=== PATIENT | male | born 1945 | race Caucasian/White ===

== ENCOUNTER 2020-03-02 14:24 | Inpatient (IN) | payer OTHER, SELFPAY ==
[2020-03-02] VITALS (46 sets, daily range): BP systolic 116–187; BP diastolic 63–144; PULSE 46–133; RESP 9–28; TEMP 35.9–36.6; O2SAT 92–98
--- NOTE | 2020-03-02 14:15 | RT.EKG_ITS ---
APPROVED REPORT Exam: Resting ECG Patient Location: E HR:123 bpm ECG Measurements Heart Rate 123 AXIS IL [id number] P [id number] QRSd 88 QRS -36 QT 317 T 81 QTc 454 Conclusion Atrial fibrillation...? atrial activity Left axis deviation...QRS axis (-30,-90) Borderline ST depression, anterolateral leads...ST <-0.07mV, I aVL V2-V6
--- NOTE | 2020-03-02 14:53 | ED.GENADUL_ITS ---
Discharge Plan Disposition Patient Disposition: [facility] INPATIENT Condition: Serious Discharge Details Clinical Impression: Atrial fibrillation with rapid ventricular response Admit Date/Time: 03/02/20 15:44 Admit Provider: Sean Huddleston Attending Provider: Sean Huddleston Primary Care Provider: Nimco Christina ED Provider: Jennifer Elena Discharge Data Discharge Date/Time-TO BE ENTERED AT DEPARTURE: 03/02/20 16:24 Medical Decision Making 75-year-old male presents to the ER with chief complaint of palpitations which began at 1030 this morning while playing golf. He denies any chest pain, dizziness weakness or shortness of breath he does states that he does not feel good. He does have a history of atrial fibrillation and had a ablation in [facility] in August 2017. Upon initial exam he is tachycardic at a irregular rate of 122-135 . He is alert and oriented x3. He is taking apixaban. Has a history of atrial fibrillation, hypertension, past surgical history includes knee replacements Discussed options with patient by Dr. Linn regarding plan of care including option 1 cardiovert with oral medications and admission or transfer to the [facility]. Rate control medications and admission or transfer to the [facility], or that he can choose to be seen at the [facility] with his normal doctors. After discussing with his family patient opted for rate control and admission to this facility. 15 mg diltiazem ordered 10 mg an hour infusion ordered at this time. 1538: Dr. Huddleston at bedside for patient evaluation. Patient received 15 mg of diltiazem IV push which brought his heart rate down to 80 he is still in atrial fibrillation but his rate is very much controlled at this point. HPI General Mode of arrival: ambulatory . Date/Time Provider Initiated Documentation: 03/02/20 14:28 . Limitations to Documentation: no limitations . Information obtained by: patient . HPI Narrative: 75-year-old male presents to the ER with chief complaint of palpitations which began at 1030 this morning while playing golf. He denies any chest pain, dizziness weakness or shortness of breath he does states that he does not feel good. He does have a history of atrial fibrillation and had a ablation in [facility] in August 2017. Upon initial exam he is tachycardic at a irregular rate of 122-135 . He is alert and oriented x3. He is taking apixaban. Has a history of atrial fibrillation, hypertension, past surgical history includes knee replacements Related Data Home Medications Medication Instructions Recorded Confirmed simvastatin 20 mg PO HS 12/29/13 03/02/20 apixaban [Eliquis] 5 mg PO DAILY 03/02/20 03/02/20 Allergies Allergy/AdvReac Type Severity Reaction Status Date / Time No Known Allergies Allergy Unverified 03/02/20 14:54 General Stated Complaint: Palpitatns JAILENE: 3 Review of Systems Narrative: Constitutional: Negative for weight loss, alert and oriented, well groomed, normal body habitus, appears comfortable. HEENT: Denies trauma, headaches, blurry vision, nasal discharge, sore throat, trouble swallowing. Chest: Denies chest pain. The palpitations and hypertension. Respiratory: Denies Shortness of breath, cough, hemoptysis. GI: Denies abdominal pain, nausea, vomiting, diarrhea, constipation. : Denies dysuria, hematuria, flank pain, rectal bleeding. Neuro: Denies dizziness, blurry vision, weakness, syncope, headache or facial numbness. Hematologic: Denies easy bruising, intolerance to heat or cold, hair loss. [facility] Social History Smoking/Tobacco Use Status: Former Tobacco Use Alcohol Intake: current Alcohol Intake frequency: holidays/special occasions only Alcohol type: beer Drug use: Never Substance use type: does not use Do you feel safe at home: Yes Do you feel safe in your relationship?: Yes Exam Narrative Exam Narrative: Constitutional: Alert and oriented x3. Appears stated age. Normal body habitus. Head: Normocephalic, no trauma. Eyes: Pupils PERRLA, Red reflex noted, EOM's intact. Eyelids symmetrical without lesions, discharge, or swelling. ENT: Bilateral TM's WNL, External ear normal to inspection, no mastoid TTP, swelling, or erythema, Nasal turbinates WNL, no nasal discharge. Normal dentition, Posterior pharynx WNL, no exudate. Chest: Irregular rate at a rate of 135, normal S1, S2, distal pulses intact. Resp: Lungs clear to auscultation bilaterally, no wheezes, rales, or rhonchi. Musculoskeletal: Normal gait, 5/5 strength to all four extremities. Skin: No suspicious rashes or lesions. Capillary refill less than 2 sec. Neurologic: Cranial nerves II-XII intact. Alert and oriented x 3. DTR's intact. Hematologic/Lymphatic: No ecchymosis, no lymphadenopathy. Course Vital Signs Vital signs: Vital Signs Temperature 36.6 C 03/02/20 14:30 Pulse 122 H 03/02/20 14:30 Respiratory Rate 16 03/02/20 14:30 Blood Pressure 135/98 H 03/02/20 14:30 Pulse Oximetry 97 03/02/20 14:30 Temperature 36.6 C 03/02/20 14:30 Temperature Source Tympanic 03/02/20 14:30 Pulse 122 H 03/02/20 14:30 Respiratory Rate 16 03/02/20 14:30 Respiratory Effort Non-Labored 03/02/20 14:33 Blood Pressure 135/98 H 03/02/20 14:30 Blood Pressure Position Sitting 03/02/20 14:30 Pulse Oximetry 97 03/02/20 14:30 Oxygen Delivery Method Room Air 03/02/20 14:30 Oxygen Flow Rate 0 03/02/20 14:30 Pain Level 0 03/02/20 14:30
[2020-03-02 15:01] LABS: Abs Immature Grans 0.02 10^3/uL (0.0-0.06); Absolute Basophil Count 0.04 10^3/uL (0.0-0.2); Absolute Lymphocyte Count 1.66 10^3/uL (1.2-3.4); Absolute Monocyte Count 0.59 10^3/uL (0.1-0.8); Absolute Neutrophil Count 5.52 10^3/uL (1.2-6.7); Basophils % 0.5; Eosinophils % 1.3; HCT 49.1 % (40.0-50.0); HGB 16.6 g/dL (13.5-17.5); Immature Grans % 0.3; Lymphocytes % 20.9; MCH 28.8 pg (27.0-33.0); MCHC 33.8 % (32.0-36.0); MCV 85.1 fL (80-95); MPV 10.1 fL (8.0-11.0); Monocytes % 7.4; Neutrophils % 69.6; Nucleated RBC 0 %; Platelet Count 205 10^3/uL (130-400); RBC 5.77 10^6/uL (4.36-5.78); RDW 13.2 % (11.8-14.1); RDW-SD 40.5 fL; WBC 7.93 10^3/uL (4.4-10.8)
[2020-03-02 15:21] LABS: ALT 23 U/L (16-63); AST 15 U/L (15-37); Albumin 3.5 g/dL (3.4-5.0); Alkaline Phosphatase 62 U/L (46-116); Anion Gap 9.3 mmol/L (3-11); BUN 13 mg/dL (7-18); Bilirubin, Total 0.6 mg/dL (0.2-1.0); CO2 25.7 mmol/L (21.0-32.0); CREATININE 1.26 mg/dL (0.70-1.30); Calcium 8.6 mg/dL (8.5-10.1); Chloride 106 mmol/L (98-107); Glucose 132 mg/dL (74-106); Magnesium 2.1 mg/dL (1.8-2.4); Potassium 3.5 mmol/L (3.5-5.1); Sodium 141 mmol/L (136-145); Total Protein 6.8 g/dL (6.4-8.2)
[2020-03-02 15:23] LABS: Troponin I < 0.05 ng/mL (<0.06)
[2020-03-02] MEDS: dilTIAZem 25 MG/5 ML VIAL 15 MG IVP (15:40)
--- NOTE | 2020-03-02 15:49 | HPE_ITS ---
Date of service: 03/02/20 Time of Service: 15:49 Assessment and Plan Assessment and plan (1) Atrial fibrillation with rapid ventricular response: Status: Acute Assessment and plan: Initial good response to IV Diltiazem push. Planning Diltiazem drip. Transition to po BB. Cont Eliquis. Gentle IV hydration. PO K to boost K level; currently low normal. (2) HLD (hyperlipidemia): Status: Acute Assessment and plan: Holding his home simvistatin d/t potential interaction with diltiazem. Qualifiers: Hyperlipidemia type: unspecified Qualified Code(s): E78.5 - Hyperlipide jose luis, unspecified History of Present Illness History of Present Illness Chief Complaint: Palpitations Narrative: This is a 75 yo male with a h/o afib / s/p ablation and on Eliquis, HLD. He presented to the ED with c/o palpitations and not feeling well. This occured while playing golf at appx 10:30AM. No CP, SOA, dizziness. His initial HR in the ED ranged from 122-135. He was given 15mg IV Diltiazem and his HR decreased into the 70's. WBC count normal. Hgb 16.6. Na 141, K 3.5, Cr 1.26, Mg 2.1. Troponin neg x 1. He is being admitted on a diltiazem drip. Review of Systems All systems reviewed & are unremarkable except as noted in HPI and below PFSH Social History Smoking/Tobacco Use Status: Former Tobacco Use Alcohol Intake: current Alcohol Intake frequency: holidays/special occasions only Alcohol type: beer Drug use: Never Substance use type: does not use Do you feel safe at home: Yes Do you feel safe in your relationship?: Yes Meds Home Medications and Allergies Home Medications Medication Instructions Recorded Confirmed Type simvastatin 20 mg PO HS 12/29/13 03/02/20 History apixaban [Eliquis] 5 mg PO DAILY 03/02/20 03/02/20 History Allergies Allergy/AdvReac Type Severity Reaction Status Date / Time No Known Allergies Allergy Unverified 03/02/20 14:54 Exam Const General: cooperative and no acute distress Nutritional Appearance: overweight Orientation: alert and oriented x3 Neck Neck: full ROM and no JVD Resp Effort & Inspection: normal respiratory effort Auscultation: clear to auscultation bilaterally Cardio Rhythm: other (Irreg Irreg) GI Palpation: soft and nontender Auscultation: normal bowel sounds Extrem General: no clubbing, cyanosis or edema Results Labs Result diagrams: 03/02/20 14:55 03/02/20 14:55 Labs: Laboratory Results - last 24 hr 03/02/20 03/02/20 14:55 14:55 WBC 7.93 RBC 5.77 Hgb 16.6 Hct 49.1 MCV 85.1 MCH 28.8 MCHC 33.8 RDW 13.2 Plt Count 205 MPV 10.1 Immature Gran % 0.3 Neutrophils % 69.6 Lymphocytes % 20.9 Monocytes % 7.4 Eosinophils % 1.3 Basophils % 0.5 Nucleated RBC % 0 Absolute Neutrophils 5.52 Absolute Lymphocytes 1.66 Absolute Monocytes 0.59 Absolute Eosinophils 0.10 Absolute Basophils 0.04 Sodium 141 Potassium 3.5 Chloride 106 Carbon Dioxide 25.7 Anion Gap 9.3 BUN 13 Creatinine 1.26 Estimated GFR/1.73 m2 56.10 Glucose 132 H Calcium 8.6 Magnesium 2.1 Total Bilirubin 0.6 AST 15 ALT 23 Alkaline Phosphatase 62 Troponin I < 0.05 Total Protein 6.8 Albumin 3.5 Last Vital Signs Temp 36.6 C 03/02/20 14:30 Pulse 117 H 03/02/20 15:40 Resp 16 03/02/20 14:30 BP 145/86 H 03/02/20 15:40 Pulse Ox 97 03/02/20 14:30 COVID-19 Screening Have you,or household,traveled outside [place] in last 14 days?: No Had IN PERSON contact w/suspected or confirmed C-19 person: No
--- NOTE | 2020-03-02 15:57 | DI.RAD_ITS ---
EXAM: XR CHEST 2V PA LATERAL CLINICAL HISTORY: Palpitations TECHNIQUE: 2D digital imaging was performed. COMPARISON: No exams were available for comparison FINDINGS: MEDIASTINUM: Normal. HEART: Normal. PULMONARY VASCULATURE: Normal. LUNGS: Clear. PLEURAL SPACE: No pleural effusion or pneumothorax. BONE:Within normal limits for the patient's age. OTHER FINDINGS:Normal. IMPRESSION: No acute pulmonary findings. DATA REPOSITORY: RADIATION DOSE DELIVERED:
--- NOTE | 2020-03-02 16:11 | DI.VRAD_ITS ---
PROCEDURE INFORMATION: Exam: XR Chest, 2 Views Exam date and time: 03/02/2020 3:57 PM Age: 75 years old Clinical indication: Other: Palpitations TECHNIQUE: Imaging protocol: XR of the chest Views: 2 views. COMPARISON: No relevant prior studies available. FINDINGS: Lungs: Unremarkable. No consolidation. Pleural space: Unremarkable. No pleural effusion. No pneumothorax. Heart/Mediastinum: Unremarkable. No cardiomegaly. Bones/joints: Unremarkable. IMPRESSION: No acute findings. Dictated and Authenticated by: Reji Islas MD. Ordering:PB Rodriguez MD
[2020-03-02] MEDS: dilTIAZem 125 MG in Normal Saline 100 ML IV (16:17)
[2020-03-02 16:25] LABS: TSH 2.28 uIU/mL (0.36-3.74)
[2020-03-02 19:38] LABS: Troponin I < 0.05 ng/mL (<0.06)
[2020-03-02] MEDS: Apixaban 5 MG TAB PO (20:27)
[2020-03-02] MEDS: Potassium Chloride 20 MEQ TABCR PO (20:27)
[2020-03-03] VITALS (38 sets, daily range): BP systolic 108–144; BP diastolic 59–86; PULSE 49–100; RESP 7–26; TEMP 36–36.3; O2SAT 95–98
[2020-03-03] MEDS: Normal Saline 1,000 ML 75 ML IV (02:45)
[2020-03-03 07:13] LABS: Anion Gap 10.1 mmol/L (3-11); BUN 12 mg/dL (7-18); CO2 22.9 mmol/L (21.0-32.0); CREATININE 1.05 mg/dL (0.70-1.30); Calcium 8.3 mg/dL (8.5-10.1); Chloride 107 mmol/L (98-107); Glucose 111 mg/dL (74-106); Sodium 140 mmol/L (136-145)
[2020-03-03] MEDS: Potassium Chloride 20 MEQ TABCR PO (08:23)
[2020-03-03] MEDS: Apixaban 5 MG TAB PO (08:23)
[2020-03-03 08:29] LABS: COVID-19 RT-PCR UVMMC Result Negative (Negative)
[2020-03-03] MEDS: Metoprolol 25 MG TAB PO (10:15)
--- NOTE | 2020-03-03 13:48 | DSE_ITS ---
Date of service: 03/03/20 Time of Service: 13:48 DS: Diagnosis Discharge Diagnosis (1) Atrial fibrillation with rapid ventricular response: Status: Acute (2) HLD (hyperlipidemia): Status: Acute Discharge Plan Disposition Patient Disposition: HOME Condition: Good Discharge Details Reason For Visit: ATRIAL FIBRILLATION WITH RAPID VENTRICULAR RESPONS Admit Date/Time: 03/02/20 15:44 Admit Provider: Sean Huddleston Attending Provider: Sean Huddleston Primary Care Provider: Nimco Christina Hospital Course Hospital Course: This is a 75 yo male with a h/o afib / s/p ablation and on Eliquis, HLD. He presented to the ED with c/o palpitations and not feeling well. This occured while playing golf at appx 10:30AM. No CP, SOA, dizziness. His initial HR in the ED ranged from 122-135. He was given 15mg IV Diltiazem and his HR decreased into the 70's. WBC count normal. Hgb 16.6. Na 141, K 3.5, Cr 1.26, Mg 2.1. Troponin neg x 1. He was admitted on a diltiazem drip. Subsequently, he was placed on oral metoprolol and his ventricular heart rate remained controlled. He was also hydrated with IV NS. His creatinine was initially 1.26 and the decreased to 1.05. His initial potassium was 3.5. He received an oral dose of potassium and it improved to 4.0. Mg normal at 2.1. He will d/c on metoprolol tartrate 25mg BID. He has a cardiology appointment next week at the [place] already scheduled. Home Meds and New Rx's Prescriptions: New Eliquis 5 mg Tablet 5 mg PO BID Qty: 0 RF: 0 metoprolol tartrate 25 mg tablet 25 mg PO BID Qty: 60 RF: 0 Continued simvastatin 20 MG tablet 20 mg PO HS RF: 0 Discontinued Eliquis 5 mg Tablet 5 mg PO DAILY RF: 0 Discharge Instructions Instructions: A-fib (Atrial Fibrillation) (GEN) Activity:: Activity as Tolerated Equipment/Supplies:: No Equipment Needed Diet:: Low Sodium Discharge Orders Discharge Orders: Discharge Order (Routine); Ordered 03/03/20 Ordered By: Sean Huddleston DS: Summary Status at Discharge Functional status at discharge: independent ambulation Overall status at discharge: patient is back to baseline Mental Status: mental status grossly normal Speech and Movement: speech and movement normal Mood: congruent mood Affect: normal affect Exam Const General: cooperative and no acute distress Nutritional Appearance: overweight Orientation: alert and oriented x3 Neck Neck: full ROM and no JVD Resp Effort & Inspection: normal respiratory effort Auscultation: clear to auscultation bilaterally Cardio Jugular venous pressure: no JVD Rhythm: other (Irreg Irreg) GI Palpation: soft and nontender Auscultation: normal bowel sounds Neuro General: moves all extremities and no focal motor deficits Cognition: normal cognition Speech: speech normal Extrem General: no clubbing, cyanosis or edema Psych Mental Status: mental status grossly normal Speech and Movement: speech and movement normal Mood: congruent mood Affect: normal affect DS: Data Vitals/I&O Vitals and I&O: Vital Signs Temperature 36.0 C L 03/03/20 12:11 Temperature Source Temporal Artery Scan 03/03/20 12:11 Pulse 84 03/03/20 11:30 Pulse 72 03/03/20 11:30 Respiratory Rate 16 03/03/20 11:30 Respiratory Effort Non-Labored 03/03/20 12:00 Respiratory Depth Normal 03/03/20 12:00 Respiratory Pattern Normal 03/03/20 12:00 Blood Pressure 120/86 03/03/20 11:30 Blood Pressure Mean 94 03/03/20 11:30 Blood Pressure Position Supine 03/02/20 20:36 Pulse Oximetry 97 03/03/20 11:30 Oxygen Delivery Method Room Air 03/03/20 08:00 Oxygen Flow Rate 0 03/03/20 08:00 Pain Level 0 03/03/20 12:00 Intake & Output 03/02/20 03/03/20 03/03/20 23:59 11:59 23:59 Intake Total 518.875 / 518.875 62.333 / 299.333 237 / 299.333 Output Total 1225 / 1225 1535 / 1785 250 / 1785 Balance -706.125 / -706.125 -1472.667 / -1485.667 -13 / -1485.667 Weight 91.6 kg Intake: IV 18.875 / 18.875 62.333 / 62.333 Oral 500 / 500 237 / 237 Output: Urine 1225 / 1225 1535 / 1785 250 / 1785 Other: Urine Color Yellow Pale Pale Yellow Yellow Urine Appearance Clear Clear Clear Urine Odor Normal None None Comment voiding clear urine in urinal Pt voiding standing at bedside in urinal Pt voiding standing at bedside in urinal Voiding Methods Urinal Urinal Data Completed and Pending Labs on day of discharge: Labs from last 24 hours 03/03/20 03/02/20 03/02/20 06:15 19:10 16:00 WBC RBC Hgb Hct MCV MCH MCHC RDW Plt Count MPV Immature Gran % Neutrophils % Lymphocytes % Monocytes % Eosinophils % Basophils % Nucleated RBC % Absolute Neutrophils Absolute Lymphocytes Absolute Monocytes Absolute Eosinophils Absolute Basophils Sodium 140 Potassium 4.0 Chloride 107 Carbon Dioxide 22.9 Anion Gap 10.1 BUN 12 Creatinine 1.05 Estimated GFR/1.73 m2 >= 60.00 Glucose 111 H Calcium 8.3 L Magnesium Total Bilirubin AST ALT Alkaline Phosphatase Troponin I < 0.05 Total Protein Albumin TSH COVID-19 PCR Negative Nasopharyn COVID-19 PCR Not Applicable Ref Test [facility]02/20 03/02/20 03/02/20 14:55 14:55 14:55 WBC 7.93 RBC 5.77 Hgb 16.6 Hct 49.1 MCV 85.1 MCH 28.8 MCHC 33.8 RDW 13.2 Plt Count 205 MPV 10.1 Immature Gran % 0.3 Neutrophils % 69.6 Lymphocytes % 20.9 Monocytes % 7.4 Eosinophils % 1.3 Basophils % 0.5 Nucleated RBC % 0 Absolute Neutrophils 5.52 Absolute Lymphocytes 1.66 Absolute Monocytes 0.59 Absolute Eosinophils 0.10 Absolute Basophils 0.04 Sodium 141 Potassium 3.5 Chloride 106 Carbon Dioxide 25.7 Anion Gap 9.3 BUN 13 Creatinine 1.26 Estimated GFR/1.73 m2 56.10 Glucose 132 H Calcium 8.6 Magnesium 2.1 Total Bilirubin 0.6 AST 15 ALT 23 Alkaline Phosphatase 62 Troponin I < 0.05 Total Protein 6.8 Albumin 3.5 TSH 2.28 COVID-19 PCR Nasopharyn COVID-19 PCR Ref Test Perform Site [facility] Social History Smoking/Tobacco Use Status: Former Tobacco Use Alcohol Intake: current Alcohol Intake frequency: holidays/special occasions only Alcohol type: beer Drug use: Never Substance use type: does not use Do you feel safe at home: Yes Do you feel safe in your relationship?: Yes
== END 2020-03-03 14:30 | disposition home or self-care (01) | DRG 310 ==
LOC: ER 16:10 → ICU 16:26
PROVIDERS: Admitting Provider Family Medicine; Emergency Provider Registered Nurse Emergency; PCP Internal Medicine; Visit Provider Family Medicine
DX: I48.91 Unspecified atrial fibrillation (principal); E78.5 Hyperlipidemia, unspecified; Z79.01 Long term (current) use of anticoagulants; I10 Essential (primary) hypertension; Z96.653 Presence of artificial knee joint, bilateral
CPT/HCPCS: 36415; 80048; 80053; 90686; 93005; 96374; 96375; 99222; 99239; 99285; U0003; 71046; 83735; 84443; 84484; 85025; 93010; 99219

== ENCOUNTER 2021-12-28 09:10 | Outpatient (CLI) | payer OTHER, SELFPAY ==
--- NOTE | 2021-12-28 09:00 | DI.RAD_ITS ---
Exam(s) XR KNEE LT 3V AP,LAT,AMY EXAM: XR KNEE LT 3V AP,LAT,AMY CLINICAL HISTORY: OA LEFT KNEE. TECHNIQUE: 2D digital imaging was performed. Three views. COMPARISON: No exams were available for comparison FINDINGS: BONES: No acute fracture is present. No bony destructive lesion is seen. JOINTS: Severe narrowing medial femoral tibial joint space. Mild periarticular spurring and mild sherman us angulation. Spurring at is noted at the articular aspect of the patella. There is a small enthes ophyte at the quadriceps insertion. No joint effusion is seen. SOFT TISSUE: Normal. IMPRESSION: Severe degenerative changes of the medial femoral tibial joint. DATA REPOSITORY: RADIATION DOSE DELIVERED:
--- NOTE | 2021-12-28 09:00 | DI.RAD_ITS ---
Exam(s) XR STANDING ALIGNMENT EXAM: XR STANDING ALIGNMENT CLINICAL HISTORY: PRE OP L TKA. TECHNIQUE: 2D digital imaging was performed. Standing AP views were performed from the pelvis throu gh the ankles. COMPARISON: No exams were available for comparison FINDINGS: BONES: No acute fracture is present. No bony destructive lesion is seen. The right femoral head proje cts roughly 1 cm superior to the left. JOINTS: Knees: Left knee prosthesis. Severe narrowing of the medial femoral tibial joint space of th e left knee. Hips: Bilateral acetabular spurring. The ankle joint unremarkable. SOFT TISSUE: Normal. IMPRESSION: Right knee prosthesis. Degenerative changes medial femoral tibial joint left knee 1 cm leg length di screpancy. DATA REPOSITORY: RADIATION DOSE DELIVERED:
== END 2021-12-28 09:11 | disposition home or self-care (01) ==
LOC: DIORS 09:10
PROVIDERS: PCP Internal Medicine; Referring Provider Internal Medicine; Visit Provider Student in an Organized Health Care Education/Training Program
DX: M17.12 Unilateral primary osteoarthritis, left knee (principal); Z01.818 Encounter for other preprocedural examination
CPT/HCPCS: 73562; 77073

== ENCOUNTER 2022-01-21 02:35 | Outpatient (CLI) | payer OTHER, SELFPAY ==
[2022-01-21 11:34] LABS: HCT 47.4 % (40.0-50.0); HGB 16.1 g/dL (13.5-17.5); MCH 29.2 pg (27.0-33.0); MCV 86 fL (80-95); MPV 10.2 fL (8.0-11.0); Platelet Count 202 10^3/uL (130-400); RBC 5.52 10^6/uL (4.36-5.78); RDW 13.4 % (11.8-14.1); RDW-SD 42.3 fL; WBC 7.07 10^3/uL (4.4-10.8)
[2022-01-21 11:49] LABS: Anion Gap 10.5 mmol/L (3-11); BUN 17 mg/dL (7-18); CO2 28.5 mmol/L (21.0-32.0); CREATININE 1.1 mg/dL (0.70-1.30); Calcium 8.8 mg/dL (8.5-10.1); Chloride 101 mmol/L (98-107); Glucose 105 mg/dL (74-106); Potassium 3.6 mmol/L (3.5-5.1); Sodium 140 mmol/L (136-145)
[2022-01-21 12:17] LABS: Source Nasal/Nares
[2022-01-21 18:52] LABS: COVID-19 PCR Negative (Negative)
== END 2022-01-21 02:36 | disposition home or self-care (01) ==
LOC: LBO 02:36
PROVIDERS: PCP Internal Medicine; Visit Provider Student in an Organized Health Care Education/Training Program
DX: M25.562 Pain in left knee (principal); M17.12 Unilateral primary osteoarthritis, left knee; Z20.822 Contact with and (suspected) exposure to COVID-19; Z01.818 Encounter for other preprocedural examination; Z01.812 Encounter for preprocedural laboratory examination
CPT/HCPCS: 36415; 80048; 85027; 87635

== ENCOUNTER 2022-01-22 06:00 | Day surgery (SDC) | payer OTHER, SELFPAY ==
[2022-01-22] VITALS (16 sets, daily range): BP systolic 93–173; BP diastolic 44–78; PULSE 45–62; RESP 10–16; TEMP 35.5–36.5; O2SAT 93–98; BMI 31.4
--- NOTE | 2022-01-22 06:14 | W.PM.DSUDISC ---
Discharge Plan Disposition Patient Disposition: HOME Condition: Good Discharge Details Reason For Visit: Left TKA Attending Provider: Hussein Rios Primary Care Provider: Nimco Christina Home Meds and New Rx's Prescriptions: New celecoxib [Celebrex] 200 mg capsule 200 mg PO BID Qty: 60 0RF pantoprazole [Protonix] 40 mg tablet,delayed release (DR/EC) 40 mg PO DAILY Qty: 30 0RF acetaminophen 500 mg capsule 1,000 mg PO Q8H PRN PRNQty: 90 0RF oxycodone 5 mg tablet 5 mg PO Q4H PRNQty: 18 0RF Continued amlodipine 10 mg tablet 10 mg PO DAILY atorvastatin 20 mg tablet 20 mg PO DAILY gabapentin 300 mg capsule 300 mg PO TID hydrochlorothiazide 25 mg tablet 25 mg PO DAILY Eliquis 5 mg Tablet 5 mg PO BID Qty: 0 0RF Discharge Instructions Additional Instructions: Total Knee Discharge Instructions Activity: The most important activity is to walk. You should try to take short walks a few times a day. It is important that when resting you work on keeping the knee straight. Avoid putting a pillow behind the knee as this will encourage flexion. Work on range of motion exercises as provided by Physical Therapy. - Start outpatient physical therapy within 2 weeks. - You should wear the KEELY hose on both legs for 2 weeks. You may remove these at night. You may also use any compression sock in place of the KEELY hose. - Utilize [employer] to review exercises, see videos on exercises and obtain basic information pertaining to your surgery and your recovery. Dressing: Remove the Bereket wrap by 2 days after your surgery and put on the KEELY stocking given to you from the hospital. Keep the surgical dressing (underneath the BEREKET wrap) in place for at least one week. After the first week it may be removed and replaced with light gauze and tape or nothing. The wound and dressing may get wet after 3 days but avoid soaking the dressing or otherwise it will need to be changed. Many people prefer covering the dressing with cling wrap (saran wrap) to minimize it from getting soaked. If it gets wet, just pat dry. If it starts to peel off then it will need to be changed. Medications: - You should take Tylenol and anti-inflammatory Celebrex as your primary pain control medications. If the Celebrex is too expensive or not covered, please call the office for another alternative (Advil/Ibuprofen or Naproxen/Aleve) - You have been prescribed a stronger pain medication Oxycodone for breakthrough pain, take as needed as prescribed. - You have also been prescribed a stomach acid reduction agent Pantoprozole to help reduce stomach acid and reflux. - Continue with your previously prescribed Gabapentin to take at night for restlessness and nerve pain. - You will be resuming your previously prescribed blood thinner, Eliquis, for DVT prevention unless instructed otherwise. - If you have constipation you should take Colace or Miralax (both [id number]). It takes most people 3-4 days to have a bowel movement. Follow-up: 2 weeks If you have any acute concerns or questions, please do not hesitate to contact the office at [phone]. You may contact Dr. Rios with any questions after hours through the hospital at [phone] or on his cell phone at [phone]. Referrals: Hussein Rios MD [ [facility] STAFF PHYSICIAN] - Equipment/Supplies: Walker Activity:: Activity as Tolerated Remove Dressings/Wound Care:: Do Not Remove Shower/Bathe:: 72 hours Diet:: As Tolerated Discharge Orders Discharge Orders: Discharge Order (Routine); Ordered 01/22/22 Ordered By: Nimco Rees DS: Diagnosis Discharge Diagnosis (1) Osteoarthritis of left knee: Status: Acute
[2022-01-22] MEDS: Gabapentin 300 MG CAP PO (06:36)
[2022-01-22] MEDS: Celecoxib 200 MG CAP 400 MG PO (06:36)
[2022-01-22] MEDS: Acetaminophen 500 MG TAB 1000 MG PO (06:37)
--- NOTE | 2022-01-22 06:39 | ANES.PREOP_ITS ---
General Info Date of Service Date Performed: 01/22/22 Height: 5 ft 10 in Weight: 99.2 kg Body Mass Index (BMI): 31.4 Surgical Procedure: Operation Date: 01/22/22 07:40 Proposed Procedure Side Surgeon p Knee Total Arthroplasty Left Hussein Rios MD Meds Allergies and Home Medications Allergies Allergy/AdvReac Type Severity Reaction Status Date / Time lisinopril Allergy Unknown Verified 01/22/22 06:21 metoprolol Allergy Unknown Verified 01/22/22 06:21 Home Medication Medication Instructions Recorded apixaban 5 mg tablet (Eliquis) 5 mg PO BID #0 tabs 03/03/20 amlodipine 10 mg tablet 10 mg PO DAILY 11/13/21 atorvastatin 20 mg tablet 20 mg PO DAILY 11/13/21 gabapentin 300 mg capsule 300 mg PO TID 11/13/21 hydrochlorothiazide 25 mg tablet 25 mg PO DAILY 11/13/21 acetaminophen 500 mg capsule 1,000 mg PO Q8H PRN PRN #90 caps 01/22/22 celecoxib 200 mg capsule (Celebrex) 200 mg PO BID #60 caps 01/22/22 oxycodone 5 mg tablet 5 mg PO Q4H PRN #18 tabs 01/22/22 pantoprazole 40 mg tablet,delayed 40 mg PO DAILY #30 tabs 01/22/22 release (Protonix) Current Visit Medications: Current Medications Generic Name Dose Route Start Last Admin Trade Name Freq PRN Reason Stop Dose Admin Acetaminophen 1,000 mg 01/22/22 06:00 01/22/22 06:37 Acetaminophen 500 Mg Tab PO 01/22/22 16:00 1,000 mg PREOP MIRIAM Administration Acetaminophen 1,000 mg 01/22/22 08:30 Acetaminophen 500 Mg Tab PO TID MIRIAM Celecoxib 400 mg 01/22/22 06:00 01/22/22 06:36 Celecoxib 200 Mg Cap PO 01/22/22 16:00 400 mg PREOP MIRIAM Administration Celecoxib 200 mg 01/22/22 08:30 Celecoxib 200 Mg Cap PO BID MIRIAM Gabapentin 300 mg 01/22/22 06:00 01/22/22 06:36 Gabapentin 300 Mg Cap PO 01/22/22 16:00 300 mg PREOP MIRIAM Administration Gabapentin 300 mg 01/22/22 22:00 Gabapentin 300 Mg Cap PO HS MIRIAM Hydromorphone HCl 0.5 mg 01/22/22 06:12 Hydromorphone 2 Mg/Ml Vial IVP Q2H PRN PRN Tranexamic Acid 1,000 mg/ 60 mls @ 360 mls/hr 01/22/22 06:00 Sodium Chloride IVPB 01/22/22 16:00 PREOP MIRIAM Ringer's Solution 1,000 mls @ 80 mls/hr 01/22/22 06:00 IV 02/20/22 23:59 INFUSION MIRIAM Cefazolin Sodium/Dextrose 2 gm in 50 mls @ 100 mls/hr 01/22/22 06:00 Ancef Duplex IVPB 02/20/22 23:59 PREOP MIRIAM Cefazolin Sodium/Dextrose 1 gm in 50 mls @ 100 mls/hr 01/22/22 15:00 Ancef Duplex IVPB 01/23/22 07:29 Q8H MIRIAM IV Miscellaneous Supplies 1 each 01/22/22 06:00 Iv Access IV 02/20/22 23:59 DIRECTED MIRIAM Ondansetron HCl 4 mg 01/22/22 06:12 Ondansetron 4 Mg/2 Ml Vial IVP Q6H PRN PRN Nausea Oxycodone HCl 5 - 10 mg 01/22/22 06:12 Oxycodone 5 Mg Tab PO Q3H PRN PRN Pain Pantoprazole Sodium 40 mg 01/22/22 07:30 Pantoprazole 40 Mg Tabcr PO DAILY@0730 MIRIAM Sodium Chloride 0 ml 01/22/22 06:00 Normal Saline Flush 10 Ml Syr IV 02/20/22 23:59 PRN PRN Sodium Chloride 0 ml 01/22/22 06:00 Normal Saline 10 Ml Vial IJ 02/20/22 23:59 DIRECTED PRN Sterile Water 0 ml 01/22/22 06:00 Water,Injection,Sterile 10 Ml Vial IJ 02/20/22 23:59 DIRECTED PRN PFSH Active Problems Active Problems: Problem Status Onset Code Atrial fibrillation with rapid ventricular response I48.91 HLD (hyperlipidemia) E78.5 Osteoarthritis of left knee M17.12 Surgical History Surgical History H/O cardiac radiofrequency ablation H/O umbilical hernia repair History of back surgery History of cholecystectomy History of left cataract surgery History of total right knee replacement (TKR) Tobacco Smoking/Tobacco Use Status: Former Tobacco Use Alcohol Alcohol Intake: current Alcohol intake frequency: holidays/special occasions only Alcohol type: beer Substance Use Substance use: Never Substance use type: does not use Vital Signs and Lab Results Vital Signs Most Recent Vital Signs in EMR: Most Recent Vital Signs Temp Pulse Resp BP Pulse Ox 36.4 C L 59 L 16 165/74 H 98 01/22/22 06:26 01/22/22 06:26 01/22/22 06:26 01/22/22 06:26 01/22/22 06:26 Lab Results Blood Type / Crossmatch: No Data to Display Complete Blood Count: White Blood Count 7.07 10^3/uL (4.4-10.8) 01/21/22 11:15 Red Blood Count 5.52 10^6/uL (4.36-5.78) 01/21/22 11:15 Hemoglobin 16.1 g/dL (13.5-17.5) 01/21/22 11:15 Hematocrit 47.4 % (40.0-50.0) 01/21/22 11:15 Platelet Count 202 10^3/uL (130-400) 01/21/22 11:15 Complete Metabolic Panel: Sodium Level 140 mmol/L (136-145) 01/21/22 11:15 Potassium Level 3.6 mmol/L (3.5-5.1) 01/21/22 11:15 Chloride Level 101 mmol/L (98-107) 01/21/22 11:15 Carbon Dioxide Level 28.5 mmol/L (21.0-32.0) 01/21/22 11:15 Blood Urea Nitrogen 17 mg/dL (7-18) 01/21/22 11:15 Creatinine 1.1 mg/dL (0.70-1.30) 01/21/22 11:15 Estimated GFR/1.73 m2 >= 60.00 (mL/min/1.73m2) 01/21/22 11:15 Calcium Level 8.8 mg/dL (8.5-10.1) 01/21/22 11:15 Glucose Level 105 mg/dL (74-106) 01/21/22 11:15 Liver Function Panel: No Data to Display Coagulation Panel: No Data to Display Cardiac Panel: No Data to Display Arterial Blood Gas: 2 No Data to Display Venous Blood Gas: No Data to Display Pancreas Panel: No Data to Display Thyroid Panel: No Data to Display Infectious Disease: Coronavirus (COVID-19)(PCR) Negative (Negative) 01/21/22 11:27 Coronavirus 2019 Source Nasal/Nares 01/21/22 11:27 Blood Cultures: No Data to Display Toxicology Panel: No Data to Display Imaging and Studies Imaging and Studies Study information below may be from another EMR and interpreted by another provider. Please see original notes in EMR for more complete details. EKG Summary: Conclusion Atrial fibrillation...? atrial activity Left axis deviation...QRS axis (-30,-90) Borderline ST depression, anterolateral leads...ST <-0.07mV, I aVL V2-V6 On 03/02/20 Anesthesia Assessment and Plan Anesthesia History Personal History: No History of Anesthesia Complications Family History: No Family History of Anesthesia Complications Exercise Tolerance Exercise Tolerance: Metabolic Equivalents>4 Pertinent Negatives Pertinent Negatives: No Symptoms of GERD, No Major Cardiovascular Symptoms or Complaints, No Major Pulmonary Symptoms or Complaints and No History of CVA/TIA Cardiac & Pulmonary Exam Cardiac Exam: Normal S1/S2 Heart Sounds Pulmonary Exam: Clear Bilateral Breath Sounds Implantable Cardiac Device Does patient have a Pacemaker or an ICD?: No Airway Exam Known Difficult Airway: No Mallampati Class: 3 Mouth Opening: Normal (> 3cm) Thyromental Distance: Greater than 3 cm Neck Range of Motion: Full ROM Neck Circumference: Normal Teeth Condition: Normal Dentition ASA Classification ASA Score: ASA 2 Emergency Case?: No NPO Status NPO Status: NPO Clears >2 hours, Solids >8 hours Anesthesia Plan Resuscitation Status: Full Code Anesthesia Technique: Spinal Anesthesia Airway Planned: Natural Airway Pain Management: Surgeon and patient request nerve block Monitors Used: Standard Monitors Preoperative Comments:: L4/L5 laminectomy in the past with degenerative changes in the past. Reports difficulty with spinals and ESIs in the past. Still wants to try spinal today.
[2022-01-22] MEDS: Lactated Ringers 1,000 ML 80 ML IV (06:48)
[2022-01-22] MEDS: ceFAZolin 2 GM/50 ML BAG IVPB (07:33)
--- NOTE | 2022-01-22 08:16 | W.ANESNERVE ---
Nerve Block Single Injection Procedure Date and Time Date Performed: 01/22/22 Procedure Start: 07:27 Location Where Procedure Performed Procedure Location: Day Surgery Unit Reason Performed: Postoperative Analgesia Requesting Provider: Hussein Rios Timeout Performed Timeout Performed: Yes Monitoring Used ECG, Blood Pressure, SpO2 and See EMR for corresponding vital signs Sterility Sterility: Hand Hygiene, Surgical Cap, Surgical Mask, Sterile Gloves and Chlorhexidine Sedation Given During Procedure Sedation Given (Indicate Dose Given): No Sedation given Patient Mental Status Patient Mental Status: Awake Nerve Block 1st Nerve Block: Laterality: Left Block Type: Adductor Canal Needle / Catheter Used: 100mm SonoPlex II Local Anesthetic Bolus (Indicate Dose Given): Lidocaine used for local infiltration of skin and Bupivacaine 0.25% Dose:: 20cc Additives (Indicate Dose Given): Precedex Dose:: 100mcg Ultrasound: Not Used Nerve Stimulator: Not Used Paresthesia: None Procedure Tolerated: No Complications Procedure Outcome: Successful Performed By: Cherrie Zaidi Supervised By: Reji Soares
[2022-01-22] MEDS: HYDROmorphone 2 MG/ML VIAL IVP (09:55)
[2022-01-22] MEDS: Normal Saline Flush 10 ML SYR IV (09:58)
--- NOTE | 2022-01-22 10:30 | ROE_ITS ---
Date of service: 01/22/22 Time of Service: 09:00 Operative Note Operative Note DATE OF PROCEDURE: 01/22/22 PRE-OP DIAGNOSIS: Left Knee Osteoarthritis POST-OP DIAGNOSIS: same PROCEDURE: Left Total Knee Replacement SURGEON: Hussein Rios [employer] DRIVER: Nimco Rees ANESTHESIA TYPE: Spinal Refer to Anesthesia Record ESTIMATED BLOOD LOSS: 150 PATHOLOGY: none sent TOURNIQUET TIME: 0 COMPLICATIONS: None Patient was transported to: PACU Patient's condition: stable Implants: 1. Depuy Attune Cementless Cruciate Retaining Femoral Component, Size 6 2. Depuy Attune Cementless Rotating Platform Tibial Component, Size 7 3. Depuy Attune 6x8mm CR/RP Poly 4. Depuy Attune Patellar Component, Size 41 Indications: I have seen Marcelo in clinic for symptoms of knee arthritis, confirmed with radiographic findings. He has exhausted nonoperative methods and was having significant limitations in daily function and desired better function and less pain. I discussed the technical details of a knee replacement. I explained the risks of the procedure to include, but not limited to, bleeding, infection, pain, stiffness, fracture, damage to nerves and vessels, damage to muscles and tendons, loosening, need for repeat procedure, blood clot and cardiopulmonary demise. Despite these risks, Marcelo elected to proceed. Findings: There was significant signs of arthritis throughout the knee. Procedure Description: Marcelo was greeted in the preoperative holding area where the correct side was identified and marked. The consent was reviewed with the patient and signed. The history and physical was updated. All questions were answered. Preoperative medications were administered: Acetaminophen 1000mg, Celebrex 400mg, and Gabapentin 300mg. An adductor canal block was then administered by the anesthesia team in the PACU. He was taken back to the operating room. A spinal anesthestic was then administered. The patient was placed into the supine position on the operating room table. A nonsterile tourniquet was placed high onto the leg but only used for cementing. Posts were placed for positioning during the procedure. All bony prominences were well padded. Prophylactic antibiotics in the form of Cefazolin were administered. 1g of Tranxemic Acid was given intravenously within 30 minutes of incision. The left leg was then prepped with Chloraprep and draped in a standard fashion with impervious stockinette. A second prep with Chloraprep was performed prior to application of Iodine impregnated skin protection. A timeout to confirm correct identity, side and site, procedure, allergies, anesthesia, and medical concerns was performed. With the knee in some flexion, a midline incision was made overlying the knee. Full thickness skin flaps were raised once the extensor mechanism was encountered. These were raised medially and laterally. Any bleeding was controlled with electrocautery. Once the extensor mechanism was fully exposed, a medial parapatellar arthrotomy was performed in a flexed position. All bleeding from the arthrotomy and the geniculate arteries was coagulated. A medial subperiosteal peel was performed with electrocautery to the midcoronal plane. The fat pad was removed while keeping the patellar tendon protected. The anterior distal femur synovium was removed for later visualization. The ACL and PCL were resected and the anterior horn of the lateral meniscus was transected. The knee was then flexed with the patella everted. Large osteophytes from the tibia were removed. Large osteoph ytes from the femur were removed. Using a step drill, and based on preoperative templating, the femoral canal was entered. This was done with a step drill without any difficulty. The intramedullary distal femoral cut guide was inserted, set to a 6 degree valgus cut and 9mm cut thickness. The distal femoral cut guide was then held in position and pinned. With the soft tissues protected, the distal cut was performed. This was passed over a few times to ensure a planar cut. I then turned attention to the tibia. The extramedullary guide was placed onto the leg. The distal aspect was slid medial to adjust for position of center of ankle and stay in line with shaft of the tibia. Approximately 3-5 degrees of posterior slope was kept in the proximal cutting guide. The center of the guide was aligned with the PCL. The stylus was used to assess cut thickness. The medial side, most involved side, was set for a 3mm cut. This was then held in position and pinned into place with 2 additional pins and a cross pin for stability. The medial and lateral collateral ligaments were protected and the cut was performed. With this completed, it was assessed and noted to be of appropriate dimensions. The guide was removed. A spacer block was inserted and the knee was brought into extension. The 7mm spacer block provided full extension, without hyperextension and with stability of both the medial and lateral collateral ligaments was assessed. The pins from the femur and the tibia were then removed. The distal femur was then sized. The anterior stylus was placed onto the late ral ridge of the anterior femur. This indicated a size 6 femur. The external rotation of the guide was adjusted to 3 degrees to match the epicondylar axis, perpendicular to Lilly?s line. The 4-in-1 cutting guide was the placed. The posterior medial femur cut was evaluated and appeared of good thickness. The spacer block was inserted underneath the cutting guide and stability was confirmed in 90 degrees of flexion. An grabiel wing was used to confirm appropriate position of the anterior cut to avoid notching. This cutting guide was ensured to be flush on the cut surface and then pinned into place with headed pins. While protecting the soft tissues, quad tendon, and collateral ligaments, the anterior and posterior cuts were performed with a saw. The central two pins were removed and the posterior and anterior chamfers were cut next. The notch-cutting guide was placed. This was pinned to lateralize the femoral component as much as possible while keeping it flush on the cut surface. This was then pinned into position. A reciprocating saw was used to make the notch cut. A rasp smoothed the cut surfaces. The medial and lateral menisci were removed. A trial femoral component was then inserted, impacted down to the cut surfaces, and the lug holes were drilled. A provisional trial tibial component was placed and the knee was brought through range of motion. The polyethylene was trialed until there was good flexion and extension with excellent stability to the medial and lateral collaterals. The patella was tracking without thumbs. A size 8mm polyethylene component provided the best range of motion and stability with less than 2mm gapping with medial and lateral stress and full extension without significant hyperextension. The tibial cut surface was fully exposed. The tibia was then sized as a 7. The tibia had been previously marked during trialing to correspond to the center of the tibial component to help with rotation. The trial was aligned to this guillermo, approximately rotated to the medial 1/3rd of the tibial tubercle. The trial was pinned into place. The tibia was prepared with a reamer and a keel punch and lug holes. The knee was then brought into extension and the patella was measured as 31mm. Using the patellar clamp and cut guide, this was resected to a flat surface with at least 13mm of thickness remaining. The size 41 patella fit the best. This was oriented and then clamped into position. The lugs were drilled. The trial components were removed. The final components were opened on the back table. The periosteal and capsular tissues, especially posteriorly, around the knee were then systematically injected with a periarticular cocktail consisting of 246mg of Ropivacaine, 0.5mg of Epinephrine, 0.08mg of Clonidine, and 30mg of Ketorolac, diluted to 100cc. On the back table, with the implants opened, the cement was mixed. One batch of high viscosity cement was prepared with vacuum assistance. After the cement was ready a small amount was placed on the cut surface of the patella and the patellar button was clamped into position and held. While the cement was hardening, the cementless knee components were placed. Starting with the tibial component, the tibia was subluxed anteriorly and the lug holes of the component were lined up. The tibia was then impacted with an impactor and mallet until th e tibial component was in contact with the tibia. The final polyethylene component was inserted. Then, the femoral component was inserted. The lug holes were aligned and the component was impacted into position. The knee was irrigated with Surgiphor Betadine solution. This was allowed to sit in the knee for 3 minutes and then it was irrigated out with saline. After the cement had finally cured, approximately 15min, the clamp was removed from the patella and the knee was taken through range of motion. The patella was tracking with a no-thumbs technique. The capsule was then reapproximated with a No. 1 Vicryl at multiple locations. The capsule was finally closed with a No. 2 Stratafix, barbed suture. The second dosing of 1g TXA was started. Deep tissues were then reapproximated with 0 Vicryl and 2-0 Vicryl. The skin was closed with a running 3-0 Monocryl in a subcuticular fashion. This was reinforced with skin glue. A Mepilex silver dressing was applied along with a [id number] HUONG wrap. A CryoCuff was applied. Marcelo was transferred to the hospital bed without difficulty an suffering no apparent complication. He has a good prognosis. Physical therapy will start today and without restrictions, weight-bearing as tolerated. His home dose of Eliquis will be used for DVT prophylaxis.
--- NOTE | 2022-01-22 11:15 | W.ANESPOSTOP ---
Postoperative Evaluation Date, Time and Location Date Performed: 01/22/22 Time Performed: 11:15 Patient Location: PACU Vital Signs Most Recent Imported Vital Signs: Most Recent Vital Signs Temp Pulse Resp BP Pulse Ox 36.1 C L 48 L 16 111/68 96 01/22/22 10:49 01/22/22 10:49 01/22/22 10:49 01/22/22 10:49 01/22/22 10:49 Pain Score Most Recent Pain Score: Most Recent Pain Score Pain Level 2 01/22/22 10:49 Assessment Mental Status: Awake (Alert & Oriented to Patient Baseline) Airway and Respiratory Function: Patent airway with normal (patient baseline) respiratory exam Cardiovascular Function: Hemodynamically Stable Hydration Status: Adequately Hydrated Nausea & Vomiting: No Nausea or Vomiting Pain: Pt. Denies Any Pain (for me, later reported 07/19 to [facility] RN) Peripheral Nerve Block: Regional nerve block not resolved at time of post operative discharge
--- NOTE | 2022-01-22 12:38 | PT.INIE ---
Date of service: 01/22/22 Time of Service: 11:44 PT Notes Visit Reasons: Left TKA Physical Therapy Day Surgery Initial Evaluation Date: 01/22/2022 Referring Doctor: CHASE Jimenez PT Orders: PT CONSULT: S/P Ortho Surgery Precautions: WBAT on L LE with AD. Patient Profile/Admitting Diagnosis: Patient is a 76-year-old male patient with osteoarthritis of the L knee and is S/P L total knee arthroplasty on psotopertaive day 0. PMHX: Surgical History?(Updated 01/16/22 @ 11:46 by CHASE Rowland) H/O cardiac radiofrequency ablation H/O umbilical hernia repair History of back surgery History of cholecystectomy History of total right knee replacement (TKR) Social History/Home Situation: Lives with Liberty in a ranch-style home with three steps to enter and rails on B sides. Independent with all aspects of ADLs prior to admission. Equipment Owned/DME: None Subjective: Complained of being lightheaded even in reclined position. Reported 2/10 pain in the L knee. Some numbness in the lower leg and foot. Liberty states that his blood pressure has been running as typically it had been in the 140s/80s prior to surgery. Lightheadedness increased with sitting BP at 124/76 mmHg at edge of bed and with standing BP softened to 80/71 mmHg. Nurse Niru was called and updated about patient's status. Patient was then assisted back in bed to allow for BP to restabilize. Will come back and attempt to continue mobility assessment in half an hour or so. Objective: General Observation: Supine in bed. HUONG wrap to L leg. TEDS on R leg. Liberty present in room. Mental Status: Alert and oriented x 4 Pain: 2/10 on the posterolateral L knee with weight bearing ROM: Right Lower Extremity: Hip flexion WFL. Hip abduction WFL. Knee flexion WFL. Ankle dorsiflexion WFL. Ankle plantarflexion WFL. Left Lower Extremity: Hip flexion WFL. Hip abduction WFL. Knee flexion 0-90 degrees. Ankle dorsiflexion WFL. Ankle plantarflexion WFL. Strength: Right Lower Extremity: Hip flexors 5/5. Hip abductors 5/5. Knee flexors 5/5. Knee extensors 5/5. Ankle dorsiflexors 5/5. Ankle plantarflexors 5/5. Left Lower Extremity:Hip flexors 5/5. Hip abductors 5/5. Knee flexors 3-/5. Knee extensors 4-/5. Ankle dorsiflexors 5/5. Ankle plantarflexors 5/5. Sensation: Some numbness in distal L leg and foot Bed Mobility/Transfers: Supine to sit stand by assist Sit to stand stand by assist Stand to sit contact guard assist Bed to chair contact guard assist Gait: Patient was seen again after lunch as BP has been WNL and Nurse Suad states that patient feels a lot better. Patient ambulated 150 feet using FWW with sep through gait pattern, stand by assist. Pain at 2/10 on posterolateral knee. Lightheadedness subsided. Denies headache and chest pain throughout. Cues provided to allow full midstance on the L knee prior to advancing the other LE to increase stability. Stairs: Up and down 6 x 4-inch steps and 4 x 6-inch steps while holding onto B rails for support with step-to gait pattern. No report of increased pain. Balance: Static Sitting: Normal Dynamic Sitting: Normal Static Standing: Fair Dynamic Standing: Fair Special Tests: Mobility Limitations Standardized Measure [facility] AM-PAC 6 clicks Basic Mobility Inpatient Short Form: Raw Score: 20 CMS Score: 36% deficit Informed Consent/Education: Patient and were instructed in purpose of PT consult. Education and training on initial set of exercises that can be done at home have been completed with patient with referral to the [employer] shana on patient's phone. Assessment: Patient requires the use of a front wheel walker for all mobility ADL performance to reduce fall risk and maximize independence. Patient presents with clinical signs and symptoms consistent with current/admitting diagnoses that have resulted to mobility limitations, gait instability, generalized weakness, and impairment of motor control as demonstrated by the following impairment level findings: 1. Decreased strength to left knee major muscle groups 2. Impaired standing balance 3. Limitation of joint range of motion in left knee Impairments are contributing to the following functional limitations: 1. Inability to safely ambulate without assistive device 2. Increase completion time for mobility ADL performance 3. Increased fall risk Patient is assessed as a 60770 moderate complexity based on the following: History: 76-year-old male with impairment level findings, functional limitations, and past medical history as indicated above Examination: Demonstrable impairment in strength, balance, and mobility level with underlying impairments and functional limitations as documented above Presentation: Evolving Decision Makin moderate complexity Goals: N/A. PT evaluation and 1-2 treatment sessions only for functional mobility training using recommended AD and for HEP instruction. Plan of Care/Treatment Plan: N/A. PT evaluation and 1-2 treatment session only for functional mobility training using recommended AD and for HEP instruction. DISCHARGE RECOMMENDATIONS: [] Home with no services [] [] Home with services [specify] [X] Home with outpatient PT. Home when medically cleared by orthopedic surgeon. Will benefit from outpatient PT services in order to facilitate return to independent community ambulation and optimize functional outcomes without an assistive device. [] SNF for continued rehabilitation [] [] [facility] [] [] SNF versus LTC based on ability to participate and progress [] TREATMENT CODE/TIME: 66573 x26 minutes, 92487 x 20 minutes beginning at 11:18 AM and 12:38 PM. Thank you for the opportunity to participate in the care of this patient. Samira Byrd PT, DPT, CLT [facility] [place], [place]
== END 2022-01-22 13:30 | disposition home or self-care (01) ==
PROVIDERS: PCP Internal Medicine; Visit Provider Student in an Organized Health Care Education/Training Program
PROC: (CPT 27447; principal; 2022-01-22 07:30)
DX: M17.12 Unilateral primary osteoarthritis, left knee (principal); I48.91 Unspecified atrial fibrillation; E78.5 Hyperlipidemia, unspecified; Z79.01 Long term (current) use of anticoagulants
CPT/HCPCS: 27447; 76942; 97162; 97530; J0690; J1100; J2405

== ENCOUNTER 2022-02-04 09:34 | Outpatient (CLI) | payer OTHER, SELFPAY ==
--- NOTE | 2022-02-04 09:15 | DI.RAD_ITS ---
Exam(s) XR KNEE LT 1V XR STANDING ALIGNMENT EXAM: XR STANDING ALIGNMENT and XR knee LT 1 V CLINICAL HISTORY: 1ST POST OP L TKA. TECHNIQUE: 2D digital imaging was performed. Five images were obtained. COMPARISON: CR XR STANDING ALIGNMENT from 12/28/2021 FINDINGS: BONES: Mild degenerative changes are seen in the hips bilaterally. The patient now has bilateral tot al knee replacements. The orthopedic hardware appears in good position. The ankles are well maintai joaquin.There is no significant leg length discrepancy. SOFT TISSUE: Normal. IMPRESSION: Bilateral total knee replacements. DATA REPOSITORY: RADIATION DOSE DELIVERED:
== END 2022-02-04 09:35 | disposition home or self-care (01) ==
LOC: DIORS 09:35
PROVIDERS: PCP Internal Medicine; Referring Provider Internal Medicine; Visit Provider Physician Assistant
DX: Z96.652 Presence of left artificial knee joint (principal); Z96.651 Presence of right artificial knee joint
CPT/HCPCS: 73560; 77073

== ENCOUNTER 2023-01-27 14:52 | Outpatient (CLI) | payer OTHER, SELFPAY ==
--- NOTE | 2023-01-27 13:45 | DI.RAD_ITS ---
Exam(s) XR KNEE LT 2V AP,LAT EXAM: XR KNEE LT 2V AP,LAT CLINICAL HISTORY: s/p left TKA. TECHNIQUE: 2D digital imaging was performed. Two images were obtained. AP and lateral views were ob tained. COMPARISON: CR XR KNEE LT 3V AP,LAT,AMY from 12/28/2021 CR XR KNEE LT 1V from 02/04/2022 FINDINGS: BONES: There are stable post operative changes present. No fracture or dislocation. JOINTS: The orthopedic hardware is in good position. No evidence of hardware loosening. SOFT TISSUE: Mild atherosclerosis. IMPRESSION: Stable postoperative changes. DATA REPOSITORY: RADIATION DOSE DELIVERED:
== END 2023-01-27 14:53 | disposition home or self-care (01) ==
LOC: DIORS 14:52
PROVIDERS: PCP Internal Medicine; Referring Provider Internal Medicine; Visit Provider Physician Assistant
DX: Z96.652 Presence of left artificial knee joint (principal); Z47.1 Aftercare following joint replacement surgery
CPT/HCPCS: 73560

== ENCOUNTER → 2023-03-07 01:02 | Outpatient (CLI) | payer OTHER, SELFPAY ==
--- NOTE | 2023-03-07 | DI.MRI_ITS ---
Exam(s) MR LUMBAR SPINE WO EXAM: MR LUMBAR SPINE WO CLINICAL HISTORY: RADICULOPATHY LUMBAR REGION, M54.16 [id number]. TECHNIQUE: Multiplanar multisequence MRI of the Lumbar spine was performed. COMPARISON: CR SPINE LUMBOSACRAL MIN 6 VIEWS from 02/21/2023 FINDINGS: Bones: The last intervertebral disc space is designated the L5/S1 level for the numbering purpose of this examination. The vertebral body heights are well maintained. Alignment is satisfactory. The si gnal characteristics are unremarkable. L5 laminectomy. Cord: The conus tip ends at the T12-L1 level. It is of normal size and signal intensity. T12-L1: No disc herniations or bulges are present. No central spinal canal or neural foraminal stenos is. L1-2: No disc herniations or bulges are present. No central spinal canal or neural foraminal stenosis . L2-3: No disc herniations or bulges are present. No central spinal canal or neural foraminal stenosis . L3-4: No disc herniations or bulges are present. No central spinal canal or neural foraminal stenosis . L4-5: There is a diffuse disc bulge. There are hypertrophic changes of the facets. There is mild na rrowing of the central spinal canal. There is resultant moderately severe narrowing of the right chantel ral foramen and compression of the exiting nerve root.There is mild narrowing of the left neural fora men. L5-S1: There is a diffuse disc bulge. No central spinal canal or neural foraminal stenosis. Soft tissues: The visualized SI joints and sacrum are well maintained. The paraspinal soft tissues ar e unremarkable. IMPRESSION: 1. There is a large diffuse disc bulge at L4-L5. This, in conjunction with the hypertrophic changes of the facets, causes mild narrowing of the central spinal canal. There is resultant moderately kiley re narrowing of the right neural foramen and compression of the exiting nerve root. There is mild na rrowing of the left neural foramen. 2. L5 laminectomy. 3. Degenerative changes seen in the lower lumbar spine. DATA REPOSITORY:
== END ==
PROVIDERS: PCP Internal Medicine; Visit Provider Internal Medicine
DX: M48.061 Spinal stenosis, lumbar region without neurogenic claudication (principal); M54.16 Radiculopathy, lumbar region
CPT/HCPCS: 72148